=== PATIENT | female | born 1980 | race Caucasian/White ===

== ENCOUNTER → 2018-03-31 16:26 | Outpatient (CLI) | payer OTHER, SELFPAY ==
[2018-04-21 10:01] LABS: AFP, Serum 35.3 ng/mL; Calc Gestational Age 17.7; Est Date Determined by US; Maternal Weight 222 lbs; Mother Ethnic Origin CAUCASIAN; Number of Fetuses 1; Prev Pregnancies Down Syndrome N
== END ==
PROVIDERS: PCP Obstetrics & Gynecology; Visit Provider Obstetrics & Gynecology
DX: Z34.82 Encounter for supervision of other normal pregnancy, second trimester (principal); Z34.92 Encounter for supervision of normal pregnancy, unspecified, second trimester
CPT/HCPCS: 36415; 82105

== ENCOUNTER → 2018-04-16 13:02 | Outpatient (CLI) | payer OTHER, SELFPAY ==
--- NOTE | 2018-04-16 13:02 | DI.US.S_ITS ---
PROCEDURE: US OB >= 14 WEEKS FETUS INDICATIONS: 20 week anatomic survey OUTSIDE/PRIOR DATING DATA: Last menstrual period (LMP): 11/27/17. LMP-based estimated date of delivery (JUSTIN): 09/03/18. First dating scan (date and location): 02/02/18. Estimated date of delivery (JUSTIN) from first dating scan: 09/05/18. TECHNIQUE: Real-time scanning was performed of the fetus, with image documentation and biometric measurements. Endovaginal scanning: No COMPARISON: [facility], , OB COMPLETE LESS THAN 14 WKS, 02/02/2018, 16:49. [facility], , OB COMPLETE LESS THAN 14 WKS, 03/02/2018, 16:08. FINDINGS: General: A single living intrauterine gestation is present. Presentation: Vertex. Placenta: Placental position is posterior, without previa. Amniotic fluid index: 13.9 cm, normal range is 5-24 cm. heart rate: 153 beats per minute. Maternal cervical canal: 3.2 cm long. biometrics: Biparietal diameter: 19 weeks 5 days Head circumference: 19 weeks 4 days Abdominal circumference: 20 weeks 3 days Femur length: 20 weeks 2 days Estimated gestational age from initial scan: 19 weeks 5 days Composite gestational age from present scan: 20 weeks Estimated weight and percentile: 342 g, 76th percentile Measurement variability for biometric dating: +/- 7 days from 14 weeks to 15 weeks 6 days gestation, +/- 10 days from 16 weeks to 21 weeks 6 days gestation, +/- 2 weeks from 22 weeks to 27 weeks 6 days gestation, +/- 3 weeks for 28 weeks gestation or later. weight reference: 4500 g or EFW >90/95% is considered macrosomia or large for gestational age. EFW <10% is small for gestational age. EFW 5% or less is considered intra-uterine growth restriction. Anatomic survey: Neuro: Ventricles are non-dilated at less than 10 mm. Cisterna magna is normal at 3-11 mm. Cerebellum is normal in size and morphology. Nuchal skin fold: Normal at less than 6 mm between 14-21 weeks gestational age. Face: Not well-seen covered by hands at the time of the study. Spine: No evidence for spina bifida. Heart: Not well-seen due to gestational lie. Diaphragm: Diaphragm is intact. Stomach: Left-sided stomach is present. Kidneys: No hydronephrosis. Normal is less than 5 mm in 2nd trimester, less than 7 mm in 3rd trimester. Cord: 3-vessel cord has orthotopic insertion. Bladder: Normal in size. Extremities: All 4 extremities identified. IMPRESSION: 1. Normal interval growth. 2. anatomic survey as above. Followup for heart and facial structures recommended. Dictated by: Akash BULL Interpreted: Jori Hewitt MD on 04/16/2018 at 15:37 Approved by: Goyo Trinidad M.D. on 04/19/2018 at 10:19
== END ==
PROVIDERS: PCP Obstetrics & Gynecology; Visit Provider Obstetrics & Gynecology
DX: Z34.82 Encounter for supervision of other normal pregnancy, second trimester (principal); Z3A.19 19 weeks gestation of pregnancy
CPT/HCPCS: 76811

== ENCOUNTER → 2018-05-28 15:27 | Outpatient (CLI) | payer OTHER, SELFPAY ==
[2018-05-28 18:00] LABS: Hematocrit 33.6 % (36-46); Hemoglobin 11.6 g/dL (12.0-16.0)
[2018-05-28 18:15] LABS: GTT (PREG) 1 Hour PP 50gm Dose 150 mg/dL (76-139)
== END ==
PROVIDERS: PCP Obstetrics & Gynecology; Visit Provider Obstetrics & Gynecology
DX: Z34.82 Encounter for supervision of other normal pregnancy, second trimester (principal)
CPT/HCPCS: 82950; 85014; 85018

== ENCOUNTER → 2018-06-14 07:40 | Outpatient (CLI) | payer OTHER, SELFPAY ==
[2018-06-14 09:33] LABS: Glucose Fasting 82 mg/dL (70-100)
[2018-06-14 11:00] LABS: Glucose 1 Hour 161 mg/dL (70-170)
[2018-06-14 11:02] LABS: Glucose 2 Hour 77 mg/dL (70-140)
[2018-06-14 13:12] LABS: Glucose Tol Interpretation INTERPRETATION
[2018-06-14 13:19] LABS: Glucose 3 Hour 124 mg/dL (70-115)
== END ==
PROVIDERS: PCP Obstetrics & Gynecology; Visit Provider Obstetrics & Gynecology
DX: R73.02 Impaired glucose tolerance (oral) (principal); Z34.92 Encounter for supervision of normal pregnancy, unspecified, second trimester
CPT/HCPCS: 36415; 82951; 82952

== ENCOUNTER → 2018-08-11 12:23 | Outpatient (CLI) | payer OTHER, SELFPAY | PROVIDERS: PCP Obstetrics & Gynecology; Visit Provider Obstetrics & Gynecology | DX: Z3A.36 36 weeks gestation of pregnancy (principal); Z34.83 Encounter for supervision of other normal pregnancy, third trimester | CPT/HCPCS: 87081 ==

== ENCOUNTER → 2018-09-04 12:00 | Outpatient (CLI) | payer OTHER, SELFPAY | END | disposition home or self-care (01) | PROVIDERS: PCP Obstetrics & Gynecology; Visit Provider Obstetrics & Gynecology | DX: Z34.83 Encounter for supervision of other normal pregnancy, third trimester (principal); Z3A.40 40 weeks gestation of pregnancy | CPT/HCPCS: 59025; G0378; G0379 ==

== ENCOUNTER 2018-09-10 07:17 | Inpatient (IN) | payer OTHER, SELFPAY ==
[2018-09-10] MEDS: OXYTOCIN PREMIX 30 UNIT/500 ML PLAST..BAG IV (08:05)
[2018-09-10] MEDS: LACTATED RINGERS 1,000 ML 100 ML IV ×4 (08:05→20:34)
[2018-09-10 08:42] LABS: Add Manual Diff / Slide Review NO; Basophils Percent Auto 0.3 % (0-2); Eosinophils Percent Auto 1.1 % (2-4); Hematocrit 36.3 % (36-46); Hemoglobin 12.4 g/dL (12.0-16.0); Lymphocytes Percent Auto 21.5 % (25-40); Mean Corpuscular HGB Conc 34.1 % (30-36); Mean Corpuscular Hemoglobin 33.7 PG (26-34); Mean Corpuscular Volume 98.7 fL (80-100); Monocytes Percent Auto 7.3 % (3-14); Neutrophils Absolute Auto 5100 /uL (3000-5900); Neutrophils Percent Auto 69.8 % (50-75); Platelet Count 198 X10^3/uL (150-400); Red Blood Cell Count 3.68 X10^6/uL (4.0-5.2); Red Cell Distribution Width 13.9 % (11.6-14.8); White Blood Cell Count 7.3 X10^3/uL (4.5-11.0)
[2018-09-10 08:45] VITALS: BP 124/84
--- NOTE | 2018-09-10 13:47 | P.HPOB_ITS ---
OB HPI Date/Time Date of admission: 09/10/18 Date Patient Seen: 09/10/18 Time Patient Seen: 10:15 History of Present Condition Chief complaint: OBS : 3 Para: 2 Estimated Date of Delivery: 09/03/18 Estimated Gestational Age (weeks): 41 Narrative: Sangeeta Coleman is a 37 year old female here for postdates induction. Indications Indication for induction OB: post dates History of Present care: good care, initiated at week # (9), number of visits (12) and pounds weight gain (50) Dating criteria: LMP confirmed by 1st trimester US Ultrasounds: normal mid trimester US Obstetrical complications: none Medical complications: none Preadmission Labs Blood type: O (+) positive -: Antibody screen: negative, GBS status: negative, HBsAG: negative, HIV: negative, HSV 1: negative, HSV 2: negative and RPR/VDLR: negative -: Chlamydia screen: not detected and Gonorrhea screen: not detected -: Rubella: immune and Varicella: immune HCAB: reactive Sequential screen: Normal AFP Cell-free DNA: Normal female 1 hr GTT: 150 3 hr GTT: 1 hr (161), 2 hr (77) and 3 hr (124) Fasting blood glucose: 82 Prior (ies) History: 01/19/1999 42 week gestation preeclampsia female vaginal delivery 6 lb 15 oz 06/02/02 41 weeks 9 lb 1 oz male vaginal delivery Evaluation Evaluation Baseline heart rate: 145 Variability: Moderate (11-25) monitor accelerations: Present monitor decelerations: Absent Category of Tracing: I Cervical dilation (cm): 1 Cervical effacement (%): 80 station: -2 Laboratory results: Laboratory Tests 09/10/18 09/10/18 07:50 07:50 WBC 7.3 RBC 3.68 L Hgb 12.4 Hct 36.3 MCV 98.7 MCH 33.7 MCHC 34.1 RDW 13.9 Plt Count 198 Neut % (Auto) 69.8 Lymph % (Auto) 21.5 L [place] % (Auto) 7.3 Eos % (Auto) 1.1 L Baso % (Auto) 0.3 Neut # (Auto) 5100 Blood Type O Positive Antibody Screen Negative PFSH Medical History Anxiety (Chronic) Superficial varicosities (Chronic) Social History Smoking Status: Never smoker Meds Allergies Allergy/AdvReac Type Severity Reaction Status Date / Time codeine AdvReac Verified 09/10/18 08:52 Review of Systems Review of Systems Patient denies any rupture of membranes. She has noted good movement. No signs or symptoms of preeclampsia. No fevers. All systems reviewed & are unremarkable except as noted in HPI and below Exam Vital Signs (past 8 hours): Blood pressure 124/84, pulse of 88, temperature 97.6?- 09/10/18 08:45 Blood Pressure 124/84 Narrative Exam Narrative: HEENT exam within normal limits. Lungs are clear to auscultation and percussion. Heart is regular rate and rhythm no S3-S4 or murmurs. Abdomen is gravid, nontender. Extremities without edema and nontender. DTRs are normal. Objective Labs Result Diagrams: 09/10/18 07:50 Labs: Laboratory Results - last 24 hr 09/10/18 09/10/18 07:50 07:50 WBC 7.3 RBC 3.68 L Hgb 12.4 Hct 36.3 MCV 98.7 MCH 33.7 MCHC 34.1 RDW 13.9 Plt Count 198 Neut % (Auto) 69.8 Lymph % (Auto) 21.5 L [place] % (Auto) 7.3 Eos % (Auto) 1.1 L Baso % (Auto) 0.3 Neut # (Auto) 5100 Blood Type O Positive Antibody Screen Negative Assessment and Plan (1) Post term at 41 weeks gestation: Current visit: Yes Status: Acute Plan: Plan: Began Pitocin induction. Anticipate vaginal delivery.
[2018-09-10] MEDS: fentaNYL 100 MCG/2 ML INJ IV (18:33)
--- NOTE | 2018-09-10 21:37 | PM.OBPRVD ---
Delivery date: 09/10/18 Intrapartal events: None Induction method: per pitocin protocol Delivery monitor: external FHT and external uterine Route of delivery: Laceration description: Vaginal - 1st Degree Delivery repair: chromic (3-0) Estimated blood loss (mL): 100 Anesthesia type: Epidural Narrative: Patient arrived on Labor and delivery for post-dates induction. She was started on Pitocin. She received an epidural catheter for pain control. heart tones were category 1 to category 2 with throughout labor. She delivered spontaneously, over an intact perineum. The viable female infant was placed on the maternal abdomen. After the cord stopped pulsating the cord was clamped cut and cord bloods obtained. The placenta delivered spontaneously, intact, with 3 vessels. There were no cervical or perineal tears. There was a posterior midline 1st degree vaginal tear that was repaired with 3 0 chromic suture. Both and mother doing well. [place] Baby 1: Infant gender: Female Presentation: vertex position: Right Occiput Anterior Placenta delivery description: Spontaneous cord vessel description: 3 Vessels score (1 min): 9 score (5 min): 9 Plan for aftercare: Routine post vaginal delivery
[2018-09-11 06:02] LABS: Hematocrit 35.6 % (36-46); Hemoglobin 12.1 g/dL (12.0-16.0)
[2018-09-11] MEDS: DOCUSATE 250 MG CAPSULE PO (08:29)
[2018-09-11] MEDS: IBUPROFEN 600 MG TABLET PO ×2 (08:29→16:17)
--- NOTE | 2018-09-11 18:32 | PM.OBPN.1 ---
Subjective - OB Interval history: day #1. Patient comments: pain well controlled baby status: doing well feeding status: exclusively breast feeding Narrative: Patient is doing well. She denies any signs or symptoms of preeclampsia. Her bleeding is minimal. She is urinating and ambulating well. Date Patient Seen: 09/11/18 Time Patient Seen: 18:32 Exam Vital Signs (past 8 hours): Patient's current blood pressure 137/88, pulse 97, temperature 97.1?. Patient prior to that had 1 elevated blood pressure 155/103 with a temperature of 99.3? Narrative Exam Narrative: Patient's abdomen is soft, nontender. Uterus is firm, at U, nontender. Mild lochia. Extremities with trace edema and nontender. Objective Labs Result Diagrams: 09/11/18 05:48 Labs: Laboratory Results - last 24 hr 09/11/18 05:48 Hgb 12.1 Hct 35.6 L Assessment & Plan (1) Post term at 41 weeks gestation: Status: Acute Current Visit: Yes (2) Vaginal delivery: Status: Acute Assessment and plan: Routine care likely home in a.m. Current Visit: Yes Plan day: 1 plan OB: routine care Time Spent With Patient Total time spent is greater than 50% in coordination of care (as documented) at patient's floor/unit and/or counseling patient: less than 15 minutes
[2018-09-12] MEDS: IBUPROFEN 600 MG TABLET PO ×2 (00:20→09:24)
--- NOTE | 2018-09-12 09:04 | PM.OBDS.1 ---
Discharge Providers Date of admission: 09/10/18 07:17 Primary care physician: Yamila Moncada MD Consults: 09/10/18 17:59 Consult to Anesthesiology Urgent Comment: Consulting Provider: Anesthesiologist Reason for consultation: Epidural 09/10/18 22:57 Consult to Funeral Home Attendant Routine Comment: Discharge provider: Cathleen Robles MD Discharge Date: 09/12/18 Summary Date Patient Seen: 09/12/18 Time Patient Seen: 09:05 Hospital Course: Patient arrived on Labor and delivery for induction for postdates. She was started on Pitocin IV. She received epidural catheter for pain control. She delivered spontaneously a viable female infant weighing 7 lb 11 oz. She had a first-degree laceration that was repaired. Both infant and mother did well . Patient denies any signs or symptoms of preeclampsia. Her bleeding is minimal. She is ambulating and urinating well. Blood pressure 140/80, pulse 101, temperature 97.4?. Abdomen is soft, nontender. Uterus is firm, at U, nontender. Perineum is intact. Mild lochia. Extremities with trace edema and nontender. Patient's blood type is O positive and she is rubella immune. Peripartum Data Delivery Method: Natural Vaginal Laceration description: Vaginal - 1st Degree Procedures: Pitocin IV, epidural catheter, spontaneous vaginal delivery, repair of first-degree tear complications: none [place] 1: Gender: Female Disposition of : home Discharge Diagnosis (1) Post term at 41 weeks gestation: Status: Acute (2) Vaginal delivery: Status: Acute Time Spent with Patient Total time spent providing and/or coordinating discharge services: Objective Labs Result Diagrams: 09/11/18 05:48 Discharge Plan Discharge Plan Patient Disposition: Home Discharge Med Rec/Prescriptions Prescriptions: New ibuprofen 600 mg Tablet 600 mg PO Q6HR PRN (Reason: Pain, Mild (1-3)) Qty: 30 RF: 0 ibuprofen 600 mg tablet 600 mg PO QID PRN (Reason: pain) Qty: 30 RF: 0 Follow up/Referrals: Yamila Moncada MD [Primary Care Provider] - 6 Weeks ( exam) Provider Discharge Instructions Diet: Regular Activity: Nothing in vagina for 4 weeks Skin/Wound/Dressing Care Report to your healthcare provider any signs of infection, such as:: chills, fever, increased pain and unusual drainage Discharge Data Primary Care Provider: Yamila Moncada Attending Provider: Yamila Moncada Admit Date/Time: 09/10/18 07:17
--- NOTE | 2018-09-12 09:08 | P.DS_ITS ---
Discharge Providers Date of admission: 09/10/18 07:17 Primary care physician: Yamila Moncada MD Consults: 09/10/18 17:59 Consult to Anesthesiology Urgent Comment: Consulting Provider: Anesthesiologist Reason for consultation: Epidural 09/10/18 22:57 Consult to Laboratory Coordinator Routine Comment: Discharge provider: Cathleen Robles MD Discharge Date: 09/12/18 Summary Date Patient Seen: 09/12/18 Time Patient Seen: 09:05 Hospital Course: Patient arrived on Labor and delivery for induction for postdates. She was started on Pitocin IV. She received epidural catheter for pain control. She delivered spontaneously a viable female infant weighing 7 lb 11 oz. She had a first-degree laceration that was repaired. Both infant and mother did well . Patient denies any signs or symptoms of preeclampsia. Her bleeding is minimal. She is ambulating and urinating well. Blood pressure 140/ 80, pulse 101, temperature 97.4?. Abdomen is soft, nontender. Uterus is firm, at U, nontender. Perineum is intact. Mild lochia. Extremities with trace edema and nontender. Patient's blood type is O positive and she is rubella immune. Peripartum Data Infant Delivery Method: Natural Vaginal Laceration description: Vaginal - 1st Degree Procedures: Pitocin IV, epidural catheter, spontaneous vaginal delivery, repair of first-degree tear complications: none 1: Gender: Female Disposition of : home Discharge Diagnosis (1) Post term at 41 weeks gestation: Status: Acute (2) Vaginal delivery: Status: Acute Time Spent with Patient Total time spent providing and/or coordinating discharge services: Objective Labs Result Diagrams: 09/11/18 05:48 Discharge Plan Discharge Plan Patient Disposition: Home Discharge Med Rec/Prescriptions Prescriptions: New ibuprofen 600 mg Tablet 600 mg PO Q6HR PRN (Reason: Pain, Mild (1-3)) Qty: 30 RF: 0 ibuprofen 600 mg tablet 600 mg PO QID PRN (Reason: pain) Qty: 30 RF: 0 Follow up/Referrals: Yamila Moncada MD [Primary Care Provider] - 6 Weeks ( exam) Provider Discharge Instructions Diet: Regular Activity: Nothing in vagina for 4 weeks Skin/Wound/Dressing Care Report to your healthcare provider any signs of infection, such as:: chills, fever, increased pain and unusual drainage Discharge Data Primary Care Provider: Yamila Moncada Attending Provider: Yamila Moncada Admit Date/Time: 09/10/18 07:17
[2018-09-12] MEDS: DOCUSATE 250 MG CAPSULE PO (09:24)
[2018-09-12 10:38] VITALS: BP 134/82; PULSE 77; RESP 16; TEMP 36.3
== END 2018-09-12 11:57 | disposition home or self-care (01) | DRG 807 ==
PROVIDERS: Specialist; Admitting Provider Obstetrics & Gynecology; PCP Obstetrics & Gynecology; Visit Provider Obstetrics & Gynecology
DX: O48.0 Post-term pregnancy (principal); Z37.0 Single live birth; O70.0 First degree perineal laceration during delivery; Z3A.41 41 weeks gestation of pregnancy
CPT/HCPCS: 01967; 36415; 59050; 59400; 59409; 85014; 85018; 85025; 86850; 86900; 86901; G0379; J2590; J3010